=== PATIENT | female | born 1945 | race Caucasian/White ===

== ENCOUNTER 2016-10-08 22:48 | Emergency (ER) | payer MEDICARE ==
[~2016-10-08] VITALS: Ht 157.5 cm; Wt 49.0 kg
--- NOTE | 2016-10-08 22:55 | Emergency Room Report ---
History of Present Illness General Chief Complaint: Multiple Trauma/Fall Source: Patient Present Illness HPI Is a 70-year-old female who is right-hand dominant. She presents with chief complaint of fall with left shoulder injury. Onset was acute and occurred just prior to arrival. She slipped and fell. She landed her left shoulder. Pain is severe 10 out of 10. Nothing made it better. Nothing made it worse. She came by EMS. No head injury. Allergies: Uncoded Allergies: PAIN PILL (Adverse Reaction, Unknown, VOMITING, 10/08/16) Patient History Past Medical History: see triage record, old chart reviewed Past Surgical History: other Pertinent Family History: none Social History: Denies: smoking Now: No Immunizations: other Reviewed Nursing Documentation: PMH: Agreed, PSxH: Agreed Nursing Documentation-PMH Past Medical History: No Stated History Review of Systems Eye: Denies: blurred vision, eye pain ENT: Denies: ear pain, nose congestion, throat swelling Respiratory: Denies: cough, shortness of breath Cardiovascular: Denies: chest pain, palpitations Gastrointestinal: Denies: abdominal pain, diarrhea, nausea, vomiting Musculoskeletal: Reports: joint pain, Denies: back pain Skin: Denies: rash Neurological: Denies: headache, numbness Endocrine: Denies: increased thirst, increased urine Hematologic/Lymphatic: Denies: easy bruising All Other Systems: negative except mentioned in HPI Physical Exam Vital Signs Date Time Temp Pulse Resp B/P Pulse Ox O2 Delivery O2 Flow Rate FiO2 10/08/16 22:46 98.2 64 16 116/66 100 Room Air vitals unremarkable Sp02 EP Interpretation: reviewed, normal General Appearance: well appearing, no apparent distress, alert Head: normocephalic, atraumatic Eyes: bilateral eye EOMI, bilateral eye PERRL ENT: hearing grossly normal, normal pharynx Neck: full range of motion, supple, no meningismus Respiratory: chest non-tender, lungs clear, normal breath sounds Cardiovascular #1: regular rate, rhythm, no murmur Gastrointestinal: normal bowel sounds, non tender, no mass, no organomegaly, no bruit, non-distended Musculoskeletal: back normal, other - That his tenderness of the proximal left shoulder. No deformity. Sensation normal. Elbow range of motion. Wrist range of motion. Pulses normal. Psychiatric: mood/affect normal Skin: warm/dry Procedures Splinting Splinting : Consent: Verbal Location: left shoulder Pre-Made Type: shoulder immobilizer Hand-Made Type: plaster Splint: sugar-tong Pre-Proc Neuro Vasc Exam: normal Post-Proc Neuro Vasc Exam: normal Patient Tolerated: Well Complications: None Medical Decision Making Diagnostic Impression: Primary Impression: Fracture, humerus closed, shaft Qualified Codes: S42.344A - Nondisplaced spiral fracture of shaft of humerus, right arm, initial encounter for closed fracture ER Course She present with mechanical fall and a humerus fracture. Patient splinted. I discussed the case with [facility] who will get orthopedic followup. . Other X-Ray Diagnostic Results Other X-Ray Diagnostic Results : X-Ray Ordered: left humerus xrays Date: Oct 09, 2016 Time: 00:02 EP Interpretation: Yes Findings: no dislocation, no soft tissue swelling, other - shaft frx. Number of Views: 3 Last Vital Signs Date Time Temp Pulse Resp B/P Pulse Ox O2 Delivery O2 Flow Rate FiO2 10/08/16 22:46 98.2 64 16 116/66 100 Room Air Status: improved Disposition: HOME, SELF-CARE Condition: Stable Scripts Hydrocodone/Acetaminophen 5-325* (HYDROCODONE/ACETAMINOPHEN 5-325*) 1 Each Tablet 1 TAB ORAL Q6H Y for For Pain, #30 TAB 0 Refills Prov: KEN LOVE M.D. 10/09/16 Additional Instructions: Follow up with orthopedic doctor in 2-3 days. Ji will call you for an appointment. Return if worse. Bring xrays with you. KEN LOVE M.D. Oct 08, 2016 22:55
[2016-10-08] MEDS ORDERED: Morphine Sulfate 4mg/ml Inj IVP ONE ×2 (23:00→23:45)
[2016-10-08 23:05] VITALS: BP 107/66
[2016-10-09] MEDS ORDERED: HYDROCODON-ACE1 EA15 ORAL (00:03)
[2016-10-09] MEDS ORDERED: TRAMADOL HCL50 MG ORAL (00:41)
[2016-10-09 05:26] VITALS: BP 110/67
--- NOTE | 2016-10-09 10:19 | Diagnostic Imaging Report ---
Indications: PAIN Technique: Two views of the left humerus Comparison: None Findings: There is a spiral fracture of the mid shaft humerus, displaced by about one bone width, slightly angulated. Impression: Positive for midshaft humeral fracture This agrees with the preliminary interpretation provided by the emergency room physician
== END 2016-10-09 05:47 | disposition home or self-care (01) ==
LOC: EDBD 22:48 → EMR 23:20
DX: S42.344A Nondisplaced spiral fracture of shaft of humerus, right arm, initial encounter for closed fracture (principal); W01.0XXA Fall on same level from slipping, tripping and stumbling without subsequent striking against object, initial encounter; Y92.9 Unspecified place or not applicable; Y99.8 Other external cause status
CPT/HCPCS: 29105; 73060; 96374; 96375; 99284; J2270; J2405